=== PATIENT | female | born 1945 | race Caucasian/White ===

== ENCOUNTER 2016-11-19 23:12 | Emergency (ER) | payer BC ==
--- NOTE | 2016-11-19 23:29 | Emergency Department Record ---
History of Present Illness - General Chief Complaint: Dizziness Stated Complaint: LOW BP,DIZZINESS,HIGH HEART RATE Time Seen by Provider: 11/19/16 23:23 Source: Patient Mode of Arrival: Ambulatory Limitations: No limitations - History of Present Illness Initial Comments: The patient is here due to a 12 hour hx of intermittent lightheadedness. The symptoms come and go and last 5-10 seconds. When she gets the feeling she will sit or lie down and she feels better. There is no reported CP, SOB, ALLAN, or sweating. The patient has a hx of intermittent Afib and feels like she may have been in it at one time. She did take her BP at home and it read low. The patient denies any recent illnesses, fever, chills, vomiting, diarrhea or any new medicines. Presently she is feeling back to normal. She has been on Tikosyn for many years due to intermittent Afib. The patient states she does have a hx of a LBBB on her EKG. MD Complaint: Lightheadedness Onset/Timin -: Hour(s) Timing: Intermittent Description: Lightheadedness, Near-syncope History of Same: Yes (prior to afib dx) History of Trauma: No Severity: Moderate Improves With: Rest Worsens With: Movement, Exertion - [place] Coma Scale Eye Response: (4) Open spontaneously Motor Response: (6) Obeys commands Verbal Response: (5) Oriented [place] Total: 15 - Related Data Home Medications Medication Instructions Recorded Confirmed Last Taken Dofetilide [Tikosyn] 250 mg PO BID 04/06/15 11/19/16 11/19/16 Levothyroxine Sodium [Synthroid] 100 mcg PO DAILY 04/06/15 11/19/16 11/19/16 Allergies Allergy/AdvReac Type Severity Reaction Status Date / Time Penicillins Allergy ANAPHYLAXIS Verified 04/06/15 19:26 olmesartan medoxomil AdvReac flank pain Verified 05/14/16 10:21 [From [facility]] Travel Screening - Travel/Exposure Within Last 30 Days Have you traveled within the last 30 days?: No - Travel Symptoms Symptom Screening: None Review of Systems Constitutional: Denies: Chills, Fever, Malaise Eyes: Denies: Eye discharge ENT: Denies: Congestion Respiratory: Denies: Cough, Dyspnea Cardiovascular: Denies: Arrhythmia, Chest pain Endocrine: Denies: Fatigue Past Medical History - SOCIAL HISTORY Smoking Status: Former smoker Alcohol Use: None Drug Use: None - RESPIRATORY Hx Respiratory Disorders: No - CARDIOVASCULAR Hx Cardio Disorders: Yes Hx Irregular Heartbeat: Yes (a-fib, RBBB. controlled with meds) - NEURO Hx Neuro Disorders: No - GI Hx GI Disorders: Yes Hx of Polyps: Yes (colon) - Hx Genitourinary Disorders: Yes Hx Bladder Problem: Yes (CA) - ENDOCRINE Hx Endocrine Disorders: Yes Hx Thyroid Disease: Yes Comment:: reactive hypoglycemia - MUSCULOSKELETAL Hx Musculoskeletal Disorders: Yes - PSYCH Hx Psych Problems: No - HEMATOLOGY/ONCOLOGY Hx Hematology/Oncology Disorders: No Hx Cancer: Yes (bladder) Hx Chemotherapy: Yes (instilled into bladder) Hx Radiation Therapy: No Family Medical History Any Significant Family History?: Yes Family Hx Comment (NOT TO BE USED IN PLACE OF ITEMS BELOW): denies Hx Resp Disorders: Mother Physical Exam - General General Appearance: Alert, Oriented x3, Cooperative, No acute distress - Head Head exam: Atraumatic, Normocephalic, Normal inspection - Eye Eye exam: Normal appearance, PERRL - Neck Neck exam: Normal inspection, Full ROM. negative: Tenderness - Respiratory Respiratory exam: Normal lung sounds bilaterally. negative: Respiratory distress - Cardiovascular Cardiovascular Exam: Regular rate, Normal rhythm, Normal heart sounds - GI/Abdominal GI/Abdominal exam: Soft, Normal bowel sounds. negative: Tenderness - Extremities Extremities exam: Normal inspection, Full ROM, Normal capillary refill. negative: Tenderness - Neurological Neurological exam: Alert, Normal gait. negative: Abnormal gait, Motor sensory deficit Course Vital Signs 11/19/16 11/19/16 23:20 23:21 Temperature 98.0 F 98.0 F Pulse Rate [ 75 Pulse Ox Probe] Respiratory 18 18 Rate Blood Pressure 159/67 [Left Arm] Pulse Ox 96 96 - Reevaluation(s) Reevaluation #1: The patient is doing well. She denies any CP, SOB or ALLAN and is resting comfortably. 11/20/16 00:14 Reevaluation #3: The patient is doing very well. She denies any pain or discomfort. She has been in NSR for almost 2 hours and has had no symptoms here in the ED with normal blood pressures. I did discuss the patient renal insuffiency and we did discuss the need for F/U. 11/20/16 01:12 Medical Decision Making - Data Complexity MDM Data: EKG Ordered and/or Reviewed - Lab Data Result diagrams: 11/19/16 23:50 11/19/16 23:50 - EKG Data -: EKG Interpreted by Me EKG: No Acute Changes, LBBB Disposition Disposition: Discharge Clinical Impression: Lightheadedness Disposition: Home, Self-Care Condition: (1) Good Instructions: Dizziness (ED) Additional Instructions: Please drink plenty of fluids. Please see your PCP for recheck in 1-2 weeks and to have your kidney function rechecked. Also follow up with Dr. Damian for further evaluation and testing. Return to the ER for any problems or issues. Forms: Patient Portal Access Time of Disposition: 01:12
[2016-11-20 00:13] LABS: EOS % 5.1 % (0-6); GRAN % 51.1 % (47-80); HEMATOCRIT 40.9 % (35.0-47.0); HEMOGLOBIN 13.7 gm/dl (11.6-16.0); LYMPH % 31.4 % (16-45); MEAN CELL VOLUME 98.1 fl (81-97); MEAN CORPUSCULAR HEMOGLOBIN 32.9 pg (27-33); MEAN CORPUSCULAR HGB CONC 33.5 g/dl (32-36); MEAN PLATELET VOLUME 10.8 fl (7.4-10.4); MONO % 11.4 % (0-9); PLATELET COUNT 240 K/uL (130-400); RED BLOOD COUNT 4.17 M/uL (3.80-5.40); RED CELL DISTRIBUTION WIDTH 13.6 % (11.5-14.5); WHITE BLOOD COUNT W/O DIFF 5.1 K/uL (4.2-12.2)
[2016-11-20 00:30] LABS: BLOOD UREA NITROGEN 20 mg/dL (7-17); CREATINE PHOSPHOKINASE 99 U/L (30-135); CREATININE 1.2 mg/dL (0.52-1.04); EST GLOMERULAR FILTRATION RATE 47 ml/min; GLUCOSE,RANDOM 113 mg/dL (70-110)
[2016-11-20 00:35] LABS: ANION GAP 8.4 (7-16); CARBON DIOXIDE 24.6 mmol/L (22-30)
[2016-11-20] MEDS: 0.9 % SODIUM CHLORIDE 1,000 ML BAG IV ONE (00:36)
[2016-11-20 00:42] LABS: CKMB 1.1 ug/L (0-6)
[2016-11-20 00:44] LABS: TROPONIN I < 0.012 ng/mL (0.00-0.034)
== END 2016-11-20 01:28 | disposition home or self-care (01) ==
LOC: ER 23:12
DX: R42 Dizziness and giddiness (principal); I48.91 Unspecified atrial fibrillation; Z87.891 Personal history of nicotine dependence; Z85.51 Personal history of malignant neoplasm of bladder
CPT/HCPCS: 80048; 82550; 82553; 84484; 85025; 93005; 93010; 99284; J7030

== ENCOUNTER 2017-11-05 21:57 | Emergency (ER) | payer BC ==
[2017-11-05 22:44] LABS: EOS % 3.2 % (0-6); HEMATOCRIT 40.8 % (35.0-47.0); HEMOGLOBIN 13.4 gm/dl (11.6-16.0); LYMPH % 33.7 % (16-45); MEAN CELL VOLUME 99.3 fl (81-97); MEAN CORPUSCULAR HEMOGLOBIN 32.6 pg (27-33); MEAN CORPUSCULAR HGB CONC 32.8 g/dl (32-36); MEAN PLATELET VOLUME 10.4 fl (7.4-10.4); MONO % 11.1 % (0-9); PLATELET COUNT 250 K/uL (130-400); RED BLOOD COUNT 4.11 M/uL (3.80-5.40); WHITE BLOOD COUNT W/O DIFF 6.2 K/uL (4.2-12.2)
[2017-11-05 22:52] LABS: BLOOD UREA NITROGEN 23 mg/dL (8-23); CREATININE 0.7 mg/dL (0.5-0.9); EST GLOMERULAR FILTRATION RATE > 60 mL/min
[2017-11-05 22:54] LABS: GLUCOSE,RANDOM 98 mg/dL (74-109)
[2017-11-05 22:59] LABS: CKMB 2.4 ng/mL (<3.77)
[2017-11-05 23:09] LABS: THYROID STIMULATING HORMONE 2.69 uIU/mL (0.270-4.20)
--- NOTE | 2017-11-06 00:07 | Emergency Department Record ---
History of Present Illness - General Chief Complaint: Arrythmia/Palpitations Stated Complaint: A-FIB Time Seen by Provider: 11/05/17 22:25 Source: Patient Mode of Arrival: Ambulatory Limitations: No limitations - History of Present Illness Initial Comments: pt felt palpitations and sob earlier tonight and thought she was back in a-fib Complaint: Atrial fibrillation, Irregular heart beat, Palpitations Onset/Timin -: Hour(s) Arrythmia History: Atrial fibrillation, Pacemaker Associated Symptoms: Shortness of breath - Related Data Home Medications Medication Instructions Recorded Confirmed Last Taken Aspirin [Adult Aspirin] 81 mg PO DAILY 11/05/17 11/05/17 Unknown Allergies Allergy/AdvReac Type Severity Reaction Status Date / Time Penicillins Allergy ANAPHYLAXIS Verified 04/06/15 19:26 olmesartan medoxomil AdvReac flank pain Verified 05/14/16 10:21 [[facility] Travel Screening - Travel/Exposure Within Last 30 Days Have you traveled within the last 30 days?: No - Travel Symptoms Symptom Screening: None Review of Systems Reviewed: No additional complaints except as noted below Constitutional: Reports: As per HPI. Denies: Chills, Fever, Malaise, Night sweats, Weakness, Weight change Eyes: Reports: As per HPI. Denies: Eye discharge, Eye pain, Photophobia, Vision change ENT: Reports: As per HPI. Denies: Congestion, Dental pain, Ear pain, Epistaxis , Hearing loss, Throat pain Respiratory: Reports: As per HPI. Denies: Cough, Dyspnea, Hemoptysis, Stridor, Wheezes Cardiovascular: Reports: As per HPI, Palpitations. Denies: Arrhythmia, Chest pain, Dyspnea on exertion, Edema, Murmurs, Orthopnea, Paroxysmal nocturnal dyspnea, Rheumatic Fever, Syncope Endocrine: Reports: As per HPI. Denies: Fatigue, Heat or cold intolerance, Polydipsia, Polyuria Gastrointestinal: Reports: As per HPI. Denies: Abdominal pain, Constipation, Diarrhea, Hematemesis, Hematochezia, Melena, Nausea, Vomiting Genitourinary: Reports: As per HPI. Denies: Abnormal menses, Discharge, Dyspareunia, Dysuria, Frequency, Hematuria, Incontinence, Retention, Urgency Musculoskeletal: Reports: As per HPI. Denies: Arthralgia, Back pain, Gout, Joint swelling, Myalgia, Neck pain Skin: Reports: As per HPI. Denies: Bruising, Change in color, Change in hair/ nails, Lesions, Pruritus, Rash Neurological: Reports: As per HPI. Denies: Abnormal gait, Confusion, Headache, Numbness, Paresthesias, Seizure, Tingling, Tremors, Vertigo, Weakness Psychiatric: Reports: As per HPI. Denies: Anxiety, Auditory hallucinations, Depression, Homicidal thoughts, Suicidal thoughts, Visual hallucinations Hematological/Lymphatic: Reports: As per HPI. Denies: Anemia, Blood Clots, Easy bleeding, Easy bruising, Swollen glands Past Medical History - SOCIAL HISTORY Smoking Status: Former smoker Alcohol Use: None Drug Use: None - RESPIRATORY Hx Respiratory Disorders: No - CARDIOVASCULAR Hx Cardio Disorders: Yes Hx Irregular Heartbeat: Yes (a-fib, RBBB. controlled with meds) Hx Palpitations: Yes Hx Pacemaker/Defib: Yes - NEURO Hx Neuro Disorders: No - GI Hx GI Disorders: Yes Hx of Polyps: Yes (colon) - Hx Genitourinary Disorders: Yes Hx Bladder Problem: Yes (CA) - ENDOCRINE Hx Endocrine Disorders: Yes Hx Thyroid Disease: Yes Comment:: reactive hypoglycemia - MUSCULOSKELETAL Hx Musculoskeletal Disorders: Yes - PSYCH Hx Psych Problems: No - HEMATOLOGY/ONCOLOGY Hx Hematology/Oncology Disorders: No Hx Cancer: Yes (bladder) Hx Chemotherapy: Yes (instilled into bladder) Hx Radiation Therapy: No Family Medical History Any Significant Family History?: Yes Hx Resp Disorders: Mother Physical Exam - General General Appearance: Alert, Oriented x3, Cooperative, Mild distress - Head Head exam: Normal inspection - Eye Eye exam: Normal appearance, PERRL, EOMI Pupils: Normal accommodation - ENT ENT exam: Normal exam, Mucous membranes moist, Normal external ear exam, Normal orophraynx Ear exam: Normal external inspection. negative: External canal tenderness Nasal Exam: Normal inspection. negative: Discharge, Sinus tenderness Mouth exam: Normal external inspection, Tongue normal Teeth exam: Normal inspection. negative: Dental caries Throat exam: Normal inspection. negative: Tonsillar erythema, Tonsillar exudate - Neck Neck exam: Normal inspection, Full ROM. negative: Tenderness - Respiratory Respiratory exam: Normal lung sounds bilaterally. negative: Respiratory distress - Cardiovascular Cardiovascular Exam: Regular rate, Normal rhythm, Normal heart sounds - GI/Abdominal GI/Abdominal exam: Soft, Normal bowel sounds. negative: Tenderness - Rectal Rectal exam: Deferred - exam: Deferred - Extremities Extremities exam: Normal inspection, Full ROM, Normal capillary refill. negative: Tenderness - Back Back exam: Reports: Normal inspection, Full ROM. Denies: Muscle spasm, Rash noted, Tenderness - Neurological Neurological exam: Alert, CN II-XII intact, Normal gait, Oriented X3 - Psychiatric Psychiatric exam: Normal affect, Normal mood - Skin Skin exam: Dry, Intact, Normal color, Warm Course Vital Signs 11/05/17 11/05/17 11/05/17 22:00 22:32 23:00 Temperature 97.9 F Pulse Rate [ 68 68 Transfusion Nurse ] Pulse Rate [ 79 Pulse Ox Probe] Respiratory 22 20 20 Rate Blood Pressure 163/78 148/77 140/75 [Left Arm] Pulse Ox 98 94 L 93 L 11/05/17 11/05/17 23:22 23:47 Temperature Pulse Rate [ 67 Transfusion Nurse ] Pulse Rate [ Pulse Ox Probe] Respiratory 20 18 Rate Blood Pressure 133/60 [Left Arm] Pulse Ox 96 96 - Reevaluation(s) Reevaluation #1: 11/06/17 00:13 pt had no episodes of afib while here Medical Decision Making - Lab Data Result diagrams: 11/05/17 22:08 11/05/17 22:08 Lab Results 11/05/17 11/05/17 11/05/17 Range/Units 22:08 22:08 22:08 WBC 6.2 (4.2-12.2) K/uL RBC 4.11 (3.80-5.40) M/uL Hgb 13.4 (11.6-16.0) gm/dl Hct 40.8 (35.0-47.0) % MCV 99.3 H (81-97) fl MCH 32.6 (27-33) pg MCHC 32.8 (32-36) g/dl RDW 13.0 (11.5-14.5) % Plt Count 250 (130-400) K/uL MPV 10.4 (7.4-10.4) fl Gran % 51.0 (47-80) % Lymphocytes % 33.7 (16-45) % Monocytes % 11.1 H (0-9) % Eosinophils % 3.2 (0-6) % Basophils % 1.0 (0-6) % D-Dimer 0.47 (0-0.59) mg/L FEU Sodium 141 (136-145) mmol/L Potassium 4.0 (3.4-4.5) mmol/L Chloride 103 (98-107) mmol/L Carbon Dioxide 24.0 (22-29) mmol/L Anion Gap 14.0 (7-16) BUN 23 (8-23) mg/dL Creatinine 0.7 (0.5-0.9) mg/dL Estimated GFR > 60 mL/min Random Glucose 98 (74-109) mg/dL Calcium 9.3 (8.8-10.2) mg/dL CK-MB (CK-2) 2.4 (<3.77) ng/mL Troponin T < 0.010 (0-0.010) ng/mL TSH 2.69 (0.270-4.20) uIU/mL Disposition Disposition: Discharge Clinical Impression: Palpitations Disposition: Home, Self-Care Instructions: Heart Palpitations (ED) Additional Instructions: follow up with cardiology this am. return sooner if worse. Forms: Patient Portal Access Quality - Quality Measures Quality Measures: N/A - Blood Pressure Screening Does Patient Have Any of the Following: No Blood Pressure Classification: Pre-Hypertensive BP Reading Systolic Measurement: 138 Diastolic Measurement: 58 Screening for High Blood Pressure: < Pre-Hypertensive BP, F/U Documented > [ G8950] Pre-Hypertensive Follow-up Interventions: Follow-up with rescreen every year.
--- NOTE | 2017-11-07 16:26 | RADIOLOGY REPORT ---
EXAM: CHEST 2 VIEWS HISTORY: SHORTNESS OF BREATH. TECHNIQUE: PA and lateral views. COMPARISON: No prior chest x-ray. FINDINGS: Heart size is normal. Pacemaker in place with no pneumothorax evident. No definite acute infiltrate seen. No pleural effusion or pneumothorax evident. IMPRESSION: PACEMAKER IN PLACE. NO ACUTE INFILTRATE EVIDENT. JOB NUMBER: [id number] MTDD
== END 2017-11-06 00:23 | disposition home or self-care (01) ==
LOC: ER 21:57
DX: I48.91 Unspecified atrial fibrillation (principal); R06.02 Shortness of breath; Z95.0 Presence of cardiac pacemaker; Z87.891 Personal history of nicotine dependence
CPT/HCPCS: 71046; 80048; 82553; 84443; 84484; 85025; 85379; 93005; 93010; 99284

== ENCOUNTER 2018-05-20 16:37 | Emergency (ER) | payer BC ==
[2018-05-20] MEDS ORDERED: Diph,Pert(Acell),Tet Vac 0.5 ML SYR IM ONE (16:57)
--- NOTE | 2018-05-20 17:06 | Emergency Department Record ---
History of Present Illness - General Chief Complaint: Laceration(s) Stated Complaint: MIDDLE FINGER LAC LEFT HAND Time Seen by Provider: 05/20/18 16:48 Source: Patient Mode of Arrival: Ambulatory Limitations: No limitations - History of Present Illness Initial Commments: The patient cut the tip of her L 3rd finger off at home about 40 minutes ago. Her Td is not utd. The patient is allergic to PCN but can take Keflex. Onset/Timin -: Minutes(s) Place: Home Context: Accidental Associated Symptoms: None Treatments Prior to Arrival: Bandage - [place] Coma Scale Eye Response: (4) Open spontaneously Motor Response: (6) Obeys commands Verbal Response: (5) Oriented [place] Total: 15 - Related Data Hx Tetanus Toxoid Vaccination: No Patient Tetanus UTD (within 5 yrs): No Previous Rx's Medication Instructions Recorded Cephalexin [Keflex] 500 mg PO TID #21 cap 05/20/18 Allergies Allergy/AdvReac Type Severity Reaction Status Date / Time Penicillins Allergy ANAPHYLAXIS Verified 05/20/18 16:42 olmesartan medoxomil AdvReac flank pain Verified 05/20/18 16:42 [From [facility]] Travel Screening - Travel/Exposure Within Last 30 Days Have you traveled within the last 30 days?: No - Travel/Exposure Within Last Year Have you traveled outside the [place] in the last year?: No - Additonal Travel Details Have you been exposed to anyone with a communicable illness?: No - Travel Symptoms Symptom Screening: None Review of Systems Constitutional: Denies: Chills, Fever Past Medical History - SOCIAL HISTORY Smoking Status: Former smoker Alcohol Use: None Drug Use: None - RESPIRATORY Hx Respiratory Disorders: No - CARDIOVASCULAR Hx Cardio Disorders: Yes Hx Irregular Heartbeat: Yes (a-fib, RBBB. controlled with meds) Hx Palpitations: Yes Hx Pacemaker/Defib: Yes - NEURO Hx Neuro Disorders: No - GI Hx GI Disorders: Yes Hx of Polyps: Yes (colon) - Hx Genitourinary Disorders: Yes Hx Bladder Problem: Yes (CA) - ENDOCRINE Hx Endocrine Disorders: Yes Hx Thyroid Disease: Yes Comment:: reactive hypoglycemia - MUSCULOSKELETAL Hx Musculoskeletal Disorders: Yes - PSYCH Hx Psych Problems: No - HEMATOLOGY/ONCOLOGY Hx Hematology/Oncology Disorders: No Hx Cancer: Yes (bladder) Hx Chemotherapy: Yes (instilled into bladder) Hx Radiation Therapy: No Family Medical History Any Significant Family History?: No Family Hx Comment (NOT TO BE USED IN PLACE OF ITEMS BELOW): denies Hx Resp Disorders: Mother Physical Exam - General General Appearance: Alert, Cooperative, No acute distress - Head Head exam: Atraumatic, Normocephalic - Eye Eye exam: Normal appearance, PERRL - Extremities Extremities exam: negative: Normal inspection (There is a very small 4x6 mm avulsion of the tip of the L 3rd finger. There are no lacerations to suture. The finger is NVI. ) Image of Finger Tip: 1 - Finger tip avulsion distal L 3rd. - Neurological Neurological exam: Alert, Normal gait. negative: Abnormal gait, Motor sensory deficit Course Vital Signs 05/20/18 16:43 Temperature 97.2 F L Pulse Rate 89 Respiratory 16 Rate Blood Pressure 168/88 Pulse Ox 97 - Reevaluation(s) Reevaluation #1: Procedure note: The L 3rd finger tip was cleansed with betadine and sterile saline. It was very clean after. There were no complications. 05/20/18 17:05 Disposition Disposition: Discharge Clinical Impression: Finger injury Qualifiers: Encounter type: initial encounter Laterality: left Qualified Code(s): S69.92XA - Unspecified injury of left wrist, hand and finger(s), initial encounter Disposition: Home, Self-Care Condition: (2) Stable Instructions: Laceration (ED) Additional Instructions: Keep dry for 2 days and then return to the ER on Sat or Sun for a wound check and bandage change. Please take Keflex as directed and use Tylenol for pain. Prescriptions: Cephalexin [Keflex] 500 mg PO TID #21 cap Forms: Patient Portal Access Time of Disposition: 17:09 Quality - Quality Measures Quality Measures: N/A - Blood Pressure Screening View Details: Yes Does Patient Have Any of the Following: No Blood Pressure Classification: Pre-Hypertensive BP Reading Systolic Measurement: 168 Diastolic Measurement: 88 Screening for High Blood Pressure: < Pre-Hypertensive BP, F/U Documented > [ G8950] Pre-Hypertensive Follow-up Interventions: Referral to alternative/primary care provider.
== END 2018-05-20 17:28 | disposition home or self-care (01) ==
LOC: ER 16:37
DX: S61.213A Laceration without foreign body of left middle finger without damage to nail, initial encounter (principal); W27.8XXA Contact with other nonpowered hand tool, initial encounter; Y93.D2 Activity, sewing; Y92.009 Unspecified place in unspecified non-institutional (private) residence as the place of occurrence of the external cause; Z87.891 Personal history of nicotine dependence
CPT/HCPCS: 90715; 96372; 99282

== ENCOUNTER 2018-05-23 14:12 | Emergency (ER) | payer BC ==
--- NOTE | 2018-05-23 14:27 | Emergency Department Record ---
History of Present Illness - General Chief Complaint: Wound, check Stated Complaint: WOUND CHECK/DRESSING CHANGE Time Seen by Provider: 05/23/18 14:15 Source: Patient Mode of arrival: Ambulatory Limitations: No limitations - History of Present Illness Initial Comments: The patient is here for a wound recheck. She cut the end of the L 3rd finger off 3 days ago. The finger has been bandaged since and doing well. There are no other complaints. She is now here for a wound recheck. Complaint: Wound re-check Onset/Timin -: Days(s) - Related Data Previous Rx's Medication Instructions Recorded Cephalexin [Keflex] 500 mg PO TID #21 cap 05/20/18 Allergies Allergy/AdvReac Type Severity Reaction Status Date / Time Penicillins Allergy ANAPHYLAXIS Verified 05/23/18 14:26 olmesartan medoxomil AdvReac flank pain Verified 05/23/18 14:26 [From [facility]] Review of Systems Constitutional: Denies: Chills, Fever Eyes: Denies: Eye discharge ENT: Denies: Congestion Respiratory: Denies: Cough, Dyspnea Past Medical History - SOCIAL HISTORY Smoking Status: Former smoker Drug Use: None - RESPIRATORY Hx Respiratory Disorders: No - CARDIOVASCULAR Hx Cardio Disorders: Yes Hx Irregular Heartbeat: Yes (a-fib, RBBB. controlled with meds) Hx Palpitations: Yes Hx Pacemaker/Defib: Yes - NEURO Hx Neuro Disorders: No - GI Hx GI Disorders: Yes Hx of Polyps: Yes (colon) - Hx Genitourinary Disorders: Yes Hx Bladder Problem: Yes (CA) - ENDOCRINE Hx Endocrine Disorders: Yes Hx Thyroid Disease: Yes Comment:: reactive hypoglycemia - MUSCULOSKELETAL Hx Musculoskeletal Disorders: Yes - PSYCH Hx Psych Problems: No - HEMATOLOGY/ONCOLOGY Hx Hematology/Oncology Disorders: No Hx Cancer: Yes (bladder) Hx Chemotherapy: Yes (instilled into bladder) Hx Radiation Therapy: No Family Medical History Family Hx Comment (NOT TO BE USED IN PLACE OF ITEMS BELOW): denies Hx Resp Disorders: Mother Physical Exam - General General Appearance: Alert, Oriented x3, Cooperative, No acute distress - Head Head exam: Atraumatic, Normocephalic, Normal inspection - Eye Eye exam: Normal appearance - Back Back exam: Denies: Normal inspection (The distal L 3rd finger appears to be healing extremely well. There already is significan granulation tissue present with no signs of infection.) Course - Reevaluation(s) Reevaluation #1: The patient is to keep the finger bandaged for 2 more days and to see her PCP if not better. 05/23/18 14:25 Disposition Disposition: Discharge Clinical Impression: Finger injury Qualifiers: Encounter type: initial encounter Laterality: left Qualified Code(s): S69.92XA - Unspecified injury of left wrist, hand and finger(s), initial encounter Disposition: Home, Self-Care Condition: (2) Stable Instructions: Acute Wound Care (ED) Additional Instructions: Please continue your oral antibiotics and keep the finger clean. Please see your family doctor if not better in 3 days and return to the ER for any worsening issues. Forms: Patient Portal Access Time of Disposition: 14:26 Quality - Quality Measures Quality Measures: N/A - Blood Pressure Screening View Details: Yes Does Patient Have Any of the Following: No Blood Pressure Classification: Hypertensive Reading Systolic Measurement: 145 Diastolic Measurement: 67 Screening for High Blood Pressure: < First Hypertensive BP, F/U Documented > [ G8950] First Hypertensive Follow-up Interventions: Referral to alternative/primary care provider.
== END 2018-05-23 14:38 | disposition home or self-care (01) ==
LOC: ER 14:12
DX: Z48.00 Encounter for change or removal of nonsurgical wound dressing (principal); S61.213A Laceration without foreign body of left middle finger without damage to nail, initial encounter; W27.8XXA Contact with other nonpowered hand tool, initial encounter; Y93.D2 Activity, sewing; Y92.009 Unspecified place in unspecified non-institutional (private) residence as the place of occurrence of the external cause; Z87.891 Personal history of nicotine dependence
CPT/HCPCS: 99281

== ENCOUNTER 2018-07-28 10:11 | Emergency (ER) | payer BC ==
[2018-07-28] MEDS ORDERED: ORPHENADRINE CITRATE 60MG/2ML VIAL IM ONE (10:26)
[2018-07-28] MEDS ORDERED: KETOROLAC 60 MG/2 ML VIAL IM STA (10:26)
--- NOTE | 2018-07-28 10:30 | Emergency Department Record ---
History of Present Illness - General Chief Complaint: Back Pain/Injury Stated Complaint: BACK PAIN Time Seen by Provider: 07/28/18 10:19 Source: Patient - History of Present Illness Initial Comments: PATIENT LIFting 30 pounds of dog food. 3-4 days ago and no relief from norco 7.5 mg which takes occassionally for her chronic back pain and her last back surgery about one year ago. Primary Dr Fan MONREAL Complaint: Back pain Onset/Timin -: Days(s) Similar Symptoms Previously: Yes Place: Home Severity: Moderate Severity scale (1-10): >10 Quality: Aching, Dull, Sharp Context: Unknown - Related Data Previous Rx's Medication Instructions Recorded Cyclobenzaprine HCl [Flexeril] 10 mg PO TID #30 tablet 07/28/18 Naproxen [Naprosyn] 500 mg PO BID #30 tablet 07/28/18 Prednisone [Prednisone 10Mg] 10 mg PO ASDIR #30 tab 07/28/18 Allergies Allergy/AdvReac Type Severity Reaction Status Date / Time Penicillins Allergy ANAPHYLAXIS Verified 07/28/18 10:16 olmesartan medoxomil AdvReac flank pain Verified 07/28/18 10:16 [facility] Travel Screening - Travel/Exposure Within Last 30 Days Have you traveled within the last 30 days?: No - Travel/Exposure Within Last Year Have you traveled outside the [place] in the last year?: No - Additonal Travel Details Have you been exposed to anyone with a communicable illness?: No - Travel Symptoms Symptom Screening: None Review of Systems Reviewed: No additional complaints except as noted below Constitutional: Reports: As per HPI. Denies: Chills, Fever, Malaise, Night sweats, Weakness, Weight change Eyes: Reports: As per HPI. Denies: Eye discharge, Eye pain, Photophobia, Vision change ENT: Reports: As per HPI. Denies: Congestion, Dental pain, Ear pain, Epistaxis , Hearing loss, Throat pain Respiratory: Reports: As per HPI. Denies: Cough, Dyspnea, Hemoptysis, Stridor, Wheezes Cardiovascular: Reports: As per HPI. Denies: Arrhythmia, Chest pain, Dyspnea on exertion, Edema, Murmurs, Orthopnea, Palpitations, Paroxysmal nocturnal dyspnea, Rheumatic Fever, Syncope Endocrine: Reports: As per HPI. Denies: Fatigue, Heat or cold intolerance, Polydipsia, Polyuria Gastrointestinal: Reports: As per HPI. Denies: Abdominal pain, Constipation, Diarrhea, Hematemesis, Hematochezia, Melena, Nausea, Vomiting Genitourinary: Reports: As per HPI. Denies: Abnormal menses, Discharge, Dyspareunia, Dysuria, Frequency, Hematuria, Incontinence, Retention, Urgency Musculoskeletal: Reports: As per HPI. Denies: Arthralgia, Back pain, Gout, Joint swelling, Myalgia, Neck pain Skin: Reports: As per HPI. Denies: Bruising, Change in color, Change in hair/ nails, Lesions, Pruritus, Rash Neurological: Reports: As per HPI. Denies: Abnormal gait, Confusion, Headache, Numbness, Paresthesias, Seizure, Tingling, Tremors, Vertigo, Weakness Psychiatric: Reports: As per HPI. Denies: Anxiety, Auditory hallucinations, Depression, Homicidal thoughts, Suicidal thoughts, Visual hallucinations Hematological/Lymphatic: Reports: As per HPI. Denies: Anemia, Blood Clots, Easy bleeding, Easy bruising, Swollen glands Past Medical History - SOCIAL HISTORY Smoking Status: Former smoker Alcohol Use: None Drug Use: None - RESPIRATORY Hx Respiratory Disorders: No - CARDIOVASCULAR Hx Cardio Disorders: Yes Hx Irregular Heartbeat: Yes (a-fib, RBBB. controlled with meds) Hx Palpitations: Yes Hx Pacemaker/Defib: Yes - NEURO Hx Neuro Disorders: No - GI Hx GI Disorders: Yes Hx of Polyps: Yes (colon) - Hx Genitourinary Disorders: Yes Hx Bladder Problem: Yes (CA) - ENDOCRINE Hx Endocrine Disorders: Yes Hx Thyroid Disease: Yes Comment:: reactive hypoglycemia - MUSCULOSKELETAL Hx Musculoskeletal Disorders: Yes - PSYCH Hx Psych Problems: No - HEMATOLOGY/ONCOLOGY Hx Hematology/Oncology Disorders: No Hx Cancer: Yes (bladder) Hx Chemotherapy: Yes (instilled into bladder) Hx Radiation Therapy: No Family Medical History Any Significant Family History?: Yes Family Hx Comment (NOT TO BE USED IN PLACE OF ITEMS BELOW): denies Hx Resp Disorders: Mother Physical Exam - General General Appearance: Alert, Oriented x3, Cooperative, Mild distress - Head Head exam: Normal inspection - Eye Eye exam: Normal appearance, PERRL Pupils: Normal accommodation - ENT ENT exam: Normal exam, Mucous membranes moist, Normal external ear exam, Normal orophraynx, TM's normal bilaterally Ear exam: Normal external inspection. negative: External canal tenderness Nasal Exam: Normal inspection. negative: Discharge, Sinus tenderness Mouth exam: Normal external inspection, Tongue normal Teeth exam: Normal inspection. negative: Dental caries Throat exam: Normal inspection. negative: Tonsillar erythema, Tonsillar exudate - Neck Neck exam: Normal inspection, Full ROM. negative: Tenderness - Respiratory Respiratory exam: Normal lung sounds bilaterally. negative: Respiratory distress - Cardiovascular Cardiovascular Exam: Regular rate, Normal rhythm, Normal heart sounds - GI/Abdominal GI/Abdominal exam: Soft, Normal bowel sounds. negative: Tenderness - Rectal Rectal exam: Deferred - exam: Deferred - Extremities Extremities exam: Normal inspection, Full ROM, Normal capillary refill. negative: Tenderness - Back Back exam: Reports: Normal inspection, Full ROM, Muscle spasm, Tenderness (pain lower back bilateral more on the left SI joint area with some radiation into the left leg). Denies: Rash noted - Neurological Neurological exam: Alert, Normal gait, Oriented X3, Reflexes normal - Psychiatric Psychiatric exam: Normal affect, Normal mood - Skin Skin exam: Dry, Intact, Normal color, Warm Course Vital Signs 07/28/18 10:11 Temperature 97.7 F Pulse Rate 84 Respiratory 20 Rate Blood Pressure 163/92 Pulse Ox 97 - Reevaluation(s) Reevaluation #1: some relief from shots but still very painful and will give a dilaudid shot 07/28/18 11:10 Reevaluation #2: feeling better 07/28/18 11:36 Disposition Clinical Impression: Lumbar strain Qualifiers: Encounter type: initial encounter Qualified Code(s): S39.012A - Strain of muscle, fascia and tendon of lower back, initial encounter Disposition: Home, Self-Care Condition: (1) Good Instructions: Low Back Strain (ED) Additional Instructions: use heat to her back four times a day norco prn she already has that flexeril 10 mg three times a day prednisone taper from 40 mg follow up with dr. Chavira in 2-7 days Prescriptions: Cyclobenzaprine HCl [Flexeril] 10 mg PO TID #30 tablet Naproxen [Naprosyn] 500 mg PO BID #30 tablet Prednisone [Prednisone 10Mg] 10 mg PO ASDIR #30 tab Forms: Patient Portal Access Time of Disposition: 11:11 Quality - Quality Measures Quality Measures: N/A - Blood Pressure Screening Does Patient Have Any of the Following: No, Active Dx of HTN Blood Pressure Classification: Hypertensive Reading Systolic Measurement: 163 Diastolic Measurement: 92 Screening for High Blood Pressure: Patient Exclusion, Hx of HTN [G9744]
[2018-07-28] MEDS ORDERED: METHYLPREDNISOLONE 80MG/VIAL IM ONE (10:36)
[2018-07-28] MEDS ORDERED: HYDROMORPHONE HCL 2 MG/ML VIAL IM ONE (11:08)
[2018-07-28] MEDS ORDERED: PROMETHAZINE HCL 25 MG/ML VIAL IM ONE (11:08)
== END 2018-07-28 11:43 | disposition home or self-care (01) ==
LOC: ER 10:11
DX: S39.012A Strain of muscle, fascia and tendon of lower back, initial encounter (principal); X50.0XXA Overexertion from strenuous movement or load, initial encounter; Y92.009 Unspecified place in unspecified non-institutional (private) residence as the place of occurrence of the external cause; Z87.891 Personal history of nicotine dependence
CPT/HCPCS: 96372; 99283; J1040; J1885; J2360; J2550

== ENCOUNTER 2018-07-29 02:52 | Emergency (ER) | payer BC ==
[2018-07-29] MEDS ORDERED: HYDROMORPHONE HCL 2 MG/ML VIAL IVP ONE (03:02)
[2018-07-29] MEDS ORDERED: DIAZEPAM (VALIUM) 5MG/ML **10ML VIAL IVP ONE (03:02)
--- NOTE | 2018-07-29 03:07 | Emergency Department Record ---
History of Present Illness - General Chief Complaint: Back Pain/Injury Stated Complaint: BACK PAIN Time Seen by Provider: 07/29/18 02:54 Source: Patient Mode of Arrival: Ambulatory Limitations: No limitations - History of Present Illness Initial Comments: 72 yo female returns to ED for evaluation of continued low back pain, was seen approximately 18 hours ago in ED for similar symptoms. Patient reports that her pain symptoms began approximately 3 days ago after liting 30-40 lbs of dog food. Patient reports pain radiating down her LLE with attempting to lay supine , reports that she has been unable to sleep for 3 days. Patient reports that she was given (4) injections this morning in the ED with have not significantly improved her symptoms. Patient denies lower extremity weakness, numbness, or urinary retention symptoms. Patient does report back fusion x 2 previously. MD Complaint: Back pain Onset/Timin -: Days(s) Similar Symptoms Previously: Yes Place: Home Radiation: Left leg Severity: Severe Quality: Burning Consistency: Constant Improves With: Sitting upright Worsens With: Supine Context: While lifting Associated Symptoms: Denies other symptoms Treatments Prior to Arrival: NSAIDS, Prescription analgesics - Related Data Previous Rx's Medication Instructions Recorded Cyclobenzaprine HCl [Flexeril] 10 mg PO TID #30 tablet 07/28/18 Naproxen [Naprosyn] 500 mg PO BID #30 tablet 07/28/18 Prednisone [Prednisone 10Mg] 10 mg PO ASDIR #30 tab 07/28/18 Diazepam [Valium] 5 mg PO Q8H PRN #12 tab 07/29/18 Allergies Allergy/AdvReac Type Severity Reaction Status Date / Time Penicillins Allergy ANAPHYLAXIS Verified 07/28/18 10:16 olmesartan medoxomil AdvReac flank pain Verified 07/28/18 10:16 [From [facility]] Review of Systems Constitutional: Denies: Chills, Fever, Malaise, Night sweats Eyes: Denies: Eye discharge, Eye pain ENT: Denies: Congestion, Ear pain, Epistaxis Respiratory: Denies: Cough, Dyspnea Cardiovascular: Denies: Chest pain, Dyspnea on exertion Endocrine: Denies: Fatigue, Heat or cold intolerance Gastrointestinal: Denies: Abdominal pain, Nausea, Vomiting Genitourinary: Denies: Incontinence, Retention Musculoskeletal: Reports: Back pain. Denies: Arthralgia, Gout, Joint swelling Skin: Denies: Bruising, Change in color Neurological: Denies: Confusion, Headache, Seizure Psychiatric: Denies: Anxiety Hematological/Lymphatic: Denies: Anemia, Blood Clots Past Medical History - SOCIAL HISTORY Smoking Status: Former smoker Drug Use: None - RESPIRATORY Hx Respiratory Disorders: No - CARDIOVASCULAR Hx Cardio Disorders: Yes Hx Irregular Heartbeat: Yes (a-fib, RBBB. controlled with meds) Hx Palpitations: Yes Hx Pacemaker/Defib: Yes - NEURO Hx Neuro Disorders: No - GI Hx GI Disorders: Yes Hx of Polyps: Yes (colon) - Hx Genitourinary Disorders: Yes Hx Bladder Problem: Yes (CA) - ENDOCRINE Hx Endocrine Disorders: Yes Hx Thyroid Disease: Yes Comment:: reactive hypoglycemia - MUSCULOSKELETAL Hx Musculoskeletal Disorders: Yes - PSYCH Hx Psych Problems: No - HEMATOLOGY/ONCOLOGY Hx Hematology/Oncology Disorders: No Hx Cancer: Yes (bladder) Hx Chemotherapy: Yes (instilled into bladder) Hx Radiation Therapy: No Family Medical History Family Hx Comment (NOT TO BE USED IN PLACE OF ITEMS BELOW): denies Hx Resp Disorders: Mother Physical Exam - General General Appearance: Alert, Oriented x3, Cooperative, Moderate distress Limitations: No limitations - Head Head exam: Atraumatic, Normocephalic, Normal inspection Head exam detail: negative: Abrasion, Contusion, Villanueva's sign, General tenderness, Hematoma, Laceration - Eye Eye exam: Normal appearance. negative: Conjunctival injection, Periorbital swelling, Periorbital tenderness, Scleral icterus - ENT Ear exam: negative: Auricular hematoma, Auricular trauma Nasal Exam: negative: Active bleeding, Discharge, Dried blood, Foreign body Mouth exam: negative: Drooling, Laceration, Muffled voice, Tongue elevation - Neck Neck exam: Normal inspection. negative: Meningismus, Tenderness - Respiratory Respiratory exam: Normal lung sounds bilaterally. negative: Rales, Respiratory distress, Rhonchi, Stridor - Cardiovascular Cardiovascular Exam: Regular rate, Normal rhythm, Normal heart sounds - GI/Abdominal GI/Abdominal exam: Soft. negative: Rebound, Rigid, Tenderness - Rectal Rectal exam: Deferred - exam: Deferred - Extremities Extremities exam: negative: Pedal edema, Tenderness - Back Back exam: Reports: Paraspinal tenderness (Left lower lumbar region). Denies: CVA tenderness (R), CVA tenderness (L) - Neurological Neurological exam: Alert, Normal gait, Oriented X3, Other (EHL/dorsiflexion/ planta flexion are all 5/5 and symmetric bilaterally, no focal weakness noted on examination.) - Psychiatric Psychiatric exam: Normal affect, Normal mood - Skin Skin exam: Normal color. negative: Abrasion Type of lesion: negative: abrasion Course - Reevaluation(s) Reevaluation #1: 07/29/18 03:10 Patient was seen and examined No historical or clinical examination for acute spinal cord compression syndrome on examination. Will administer analgesia, obtain CT imaging of the patient's spine, and obtain laboratory and urinalysis studies and reassess. Reevaluation #2: 07/29/18 04:02 Laboratory studies reviewed and are grossly unremarkable for an acute process. CT imaging report pending. Reevaluation #3: 07/29/18 04:27 UA reviewed and appears negative for an acute process. Patient reports that her pain symptoms are improved, CT report is pending. Reevaluation #4: 07/29/18 06:12 CT Lumbar Spine: Post-surgical changes L5-S1, no acute osseous abnormality Patient was updated on all results, reports that she continues to have improvement in her pain symptoms and is laying supine comfortably. I did discuss admission for further evaluation with the patient as she has returned to the ED twice in 24 hours, patient declined. Will prescribe Valium as needed in addition to Naprosyn prescribed by the previous provider. Patient appears stable for discharge at this time. Medical Decision Making - Lab Data Result diagrams: 07/29/18 03:20 07/29/18 03:20 Disposition Disposition: Discharge Clinical Impression: Low back strain Qualifiers: Encounter type: subsequent encounter Qualified Code(s): S39.012D - Strain of muscle, fascia and tendon of lower back, subsequent encounter Disposition: Home, Self-Care Condition: (2) Stable Instructions: Low Back Strain (ED) Additional Instructions: Return to ED if your symptoms worsen or if you have any concerns. Valium as directed. Follow-up with your family doctor in 1-3 days as directed. Prescriptions: Diazepam [Valium] 5 mg PO Q8H PRN #12 tab PRN Reason: Spasms Forms: Patient Portal Access Time of Disposition: 06:11 Quality - Quality Measures Quality Measures: N/A - Blood Pressure Screening Does Patient Have Any of the Following: Active Dx of HTN Blood Pressure Classification: Hypertensive Reading Systolic Measurement: 156 Diastolic Measurement: 73 Screening for High Blood Pressure: Patient Exclusion, Hx of HTN [G9744]
[2018-07-29] MEDS ORDERED: 0.9 % SODIUM CHLORIDE 1000ML 500 ML IV SCH (03:15)
[2018-07-29 03:25] LABS: BASO % 0.7 % (0-6); EOS % 3.3 % (0-6); GRAN % 65.2 % (47-80); HEMATOCRIT 42.5 % (35.0-47.0); LYMPH % 21.5 % (16-45); MEAN CELL VOLUME 100.2 fl (81-97); MEAN CORPUSCULAR HGB CONC 32.9 g/dl (32-36); MEAN PLATELET VOLUME 10.5 fl (7.4-10.4); MONO % 9.3 % (0-9); PLATELET COUNT 230 K/uL (130-400); RED BLOOD COUNT 4.24 M/uL (3.80-5.40); RED CELL DISTRIBUTION WIDTH 13.6 % (11.5-14.5); WHITE BLOOD COUNT W/O DIFF 6.1 K/uL (4.2-12.2)
[2018-07-29 03:34] LABS: BLOOD UREA NITROGEN 29 mg/dL (8-23); CREATININE 0.7 mg/dL (0.5-0.9); EST GLOMERULAR FILTRATION RATE > 60 mL/min
[2018-07-29 03:35] LABS: TOTAL PROTEIN 7.4 g/dL (6.6-8.7)
[2018-07-29 03:37] LABS: GLUCOSE,RANDOM 99 mg/dL (74-109)
[2018-07-29 03:39] LABS: ALB/GLOB RATIO 1.6 (1.1-1.8); ALBUMIN 4.6 g/dL (4.0-5.0); ALKALINE PHOSPHATASE 77 U/L (45-87); ALT/SGPT 8 U/L (<33); AST/SGOT 15 U/L (10.0-35.0)
[2018-07-29 04:12] LABS: URINE APPEARANCE CLEAR; URINE BILIRUBIN NEGATIVE (NEGATIVE); URINE BLOOD TRACE-I (NEGATIVE); URINE COLOR YELLOW; URINE GLUCOSE (UA) NEGATIVE (NEGATIVE); URINE KETONE NEGATIVE (NEGATIVE); URINE LEUKOCYTE ESTERASE SMALL (NEGATIVE); URINE NITRITE NEGATIVE (NEGATIVE); URINE PROTEIN NEGATIVE (NEGATIVE); URINE UROBILINOGEN 0.2 E.U./dL (0.20 - 1.00)
[2018-07-29 04:21] LABS: URINE BACTERIA FEW; URINE EPITHELIAL CELLS 0 - 2 (FEW); URINE RBC 0 - 2 (NONE SEEN)
[2018-07-29] MEDS ORDERED: KETOROLAC 30 MG/ML VIAL IVP ONE (05:42)
--- NOTE | 2018-07-29 15:04 | CT SCAN REPORT ---
EXAM: CT SCAN OF THE LUMBAR SPINE WITHOUT CONTRAST HISTORY: SEVERE LOWER BACK PAIN WITH RADIATION DOWN THE LEFT LOWER EXTREMITY. LIFTING INJURY FOUR DAYS AGO. PREVIOUS SPINE SURGERY. TECHNIQUE: Standard CT imaging of the lumbar spine was performed in the axial plane without contrast. Additional coronal and sagittal reformatted images were also performed. Comparison: Previous CT scan of the abdomen and pelvis dated 04/06/15. Encounter: Initial. FINDINGS: The L1 level is only partially included on this examination. The patient is status post interbody and posterior fusion at the L5-S1 level. 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 There is residual Grade 1 anterolisthesis of L5 on S1 measuring approximately 8 mm. This is unchanged from the previous examination. The remaining lumbar intervertebral disk spaces and vertebral body heights are maintained. There is mild levoconvex scoliosis within the lumbar region. There is no acute fracture. There is mild diffuse disk bulging at the L3-L4 and L4-L5 levels with effacement of the ventral aspect of the thecal sac. There is no central canal stenosis. There is no visible disk herniation. There is moderate narrowing of the L3-L4 neural foramina bilaterally with no nerve root impingement. Vascular calcifications are present within the abdominal aorta with no aneurysm. The remaining visualized paraspinal soft tissues appear normal. IMPRESSION: 1. NO ACUTE LUMBAR SPINE PATHOLOGY. THERE IS NO EVIDENCE FOR FRACTURE, DISK HERNIATION, OR NERVE ROOT IMPINGEMENT. 2. STATUS POST INTERBODY AND POSTERIOR FUSION AT THE L5-S1 LEVEL ABOVE. 3. MILD LEVOCONVEX SCOLIOSIS WITHIN THE LUMBAR REGION. JOB NUMBER: [id number] [facility]
== END 2018-07-29 06:25 | disposition home or self-care (01) ==
LOC: ER 02:52
DX: S39.012A Strain of muscle, fascia and tendon of lower back, initial encounter (principal); X50.0XXA Overexertion from strenuous movement or load, initial encounter; Z87.891 Personal history of nicotine dependence; Y92.009 Unspecified place in unspecified non-institutional (private) residence as the place of occurrence of the external cause
CPT/HCPCS: 99284 ×2; 96374; 96375; 96361; 85025; 80053; 81001; 72131; J1885; J1170; J3360; J7030

== ENCOUNTER 2018-10-11 08:22 | Day surgery (SDC) | payer BC ==
[2018-10-11] MEDS ORDERED: LIDOCAINE 2% MDV (20MG/ML) 20ML VIAL IV ONE (08:23)
[2018-10-11] MEDS ORDERED: PROPOFOL 10 MG/ML VIAL IV ONE (08:23)
--- NOTE | 2018-10-13 09:00 | Operative Note ---
DATE OF SURGERY: 10/11/2018 Surgeon: Serg Fuentes D.O. Referring physician: Deonte Chavira D.O. OPERATION: COLONOSCOPY TO THE CECUM. INDICATION: History of adenomatous polyps. The patient had adenomatous polyps noted 3 years ago in the right colon. She returns at this time for surveillance. Anesthesia: Intravenous sedation was administered by the Department of Anesthesiology and included Diprivan titrated to effect. PROCEDURE: Following informed consent from this alert individual, including a discussion of the risks and benefits of the procedure and opportunity for the patient to ask questions, the patient was in the left lateral decubitus position. Digital rectal examination was performed. No abnormalities were noted. Following this, the Olympus PCF 180 video colonoscope was inserted in the rectum without resistance. The rectal mucosa had a normal appearance with normal folds and distensibility. The colonoscope was advanced up through the bowel to the level of the cecum without much difficulty. Throughout the bowel, the mucosa appeared normal, folds were normal. The bowel was filled with distensible. A few scattered diverticula were seen in the sigmoid region. The cecum was defined by noting the appendiceal orifice and the ileocecal valve. The colon preparation was good. From the base of the cecum, the colonoscope was slowly withdrawn. Again, diverticulosis was noted in the sigmoid colon. No polyps were seen throughout the bowel. Retroflexion in the rectum revealed hypertrophy of the anal papilla. The endoscope was straightened and removed. The patient tolerated the procedure well and was returned to the recovery area in stable condition. IMPRESSION: 1. Hypertrophy of the anal papilla. 2. Sigmoid diverticulosis. 3. No polyps noted. RECOMMENDATIONS: The patient was advised to have a recheck colonoscopy in 5 years' time for polyp surveillance. Her last examination was 3 years ago. Followup will be with Dr. Chavira. As always, thank you for allowing me to participate in the care of your patient. CC: Dr. Deonte NAYAK
== END 2018-10-11 10:30 | disposition home or self-care (01) ==
LOC: HOP 08:22
PROVIDERS: ATTEND Internal Medicine Gastroenterology
DX: Z12.11 Encounter for screening for malignant neoplasm of colon (principal); Z86.010 Personal history of colon polyps; K57.30 Diverticulosis of large intestine without perforation or abscess without bleeding; K62.89 Other specified diseases of anus and rectum; I48.91 Unspecified atrial fibrillation; E03.9 Hypothyroidism, unspecified
CPT/HCPCS: 00812; G0105